=== PATIENT | female | born 1945 | race Hispanic/Latino ===

== ENCOUNTER 2019-03-15 10:50 | Outpatient (CLI) | payer MEDICARE ==
--- NOTE | 2019-03-15 15:08 | Mammography Report ---
BONE DEXA CLINICAL: Postmenopausal. TECHNIQUE: 2 site bone DEXA performed on an Hologic scanner. FINDINGS: The average BMD of the lumbar spine L1-L4 is 0.980g/cm squared with a T score of -0.6 and a Z score o f +1.6. The average total BMD of the left hip is 0.847 g/cm squared with a T score of -0.8and a Z score of +0 .8. The left femoral neck BMD is 0.724g/cm squared with a T score of -1.1 and a Z score of +0.7 IMPRESSION: 1. WHO classification: Normal with average fracture risk based on spine measurements. 2. WHO classification Osteopenia with increased fracture risk based on left femoral neck measurements . RECOMMENDATION: Clinical correlation and routine screening. Definitions: BMD equal bone mineral density T score = BMD related to peak bone mass of young adult ([place] expressed an standard deviation) Z score = age-matched BMD expressed in SD World health organization (WHO) diagnostic criteria Normal T score greater than equal to 1 standard deviation Osteopenia T score between -1 and -2.4 standard deviation Osteoporosis T score -2.5 standard deviation or below. Note: BMD is not the only risk factor for fracture; also consider factors such as the patient's age, risk of falling, previous osteoporotic fracture, family history of osteoporotic fractures, current sm oker and low body weight. Z scores are not calculated if greater than 80 years of age. Signer Name: Romaine Bennett MD Signed: 03/15/2019 3:04 PM Workstation Name: [id number]
== END 2019-03-15 10:51 | disposition home or self-care (01) ==
LOC: SPVWC 10:50
PROVIDERS: ATTEND Internal Medicine
DX: M85.88 Other specified disorders of bone density and structure, other site (principal); M81.0 Age-related osteoporosis without current pathological fracture; Z78.0 Asymptomatic menopausal state
CPT/HCPCS: 77080

== ENCOUNTER 2021-11-13 12:54 | Outpatient (CLI) | payer MEDICARE ==
--- NOTE | 2021-11-13 15:43 | Mammography Report ---
DEXA BONE DENSITY SCAN INDICATION / CLINICAL INFORMATION: ASYMPTOMATIC MENOPAUSAL STATE. 76 years Female COMPARISON: 03/15/2019. LUMBAR SPINE, L1-L4: - Bone mineral density (BMD) = 0.972 g/cm2. - T-score = -0.7 - Change (%) since most recent prior (if available): -0.9 LEFT HIP, NECK : - Bone mineral density (BMD) = 0.678 g/cm2. - T-score = -1.5 - Change (%) since most recent prior (if available): -6.3 IMPRESSION: 1. WHO Classification: Osteopenia. Fracture Risk: Increased. BMD Reporting Guidelines (ISCD, 2015) BMD Reporting in Postmenopausal Women and in Men Age 50 and Older - T-scores are preferred. - The WHO densitometric classification is applicable. BMD Reporting in Females Prior to Menopause and in Males Younger Than Age 50 - Z-scores, not T-scores, are preferred. This is particularly important in children. - A Z-score of -2.0 or lower is defined as below the expected range for age, and a Z-score above -2.0 is within the expected range for age. - Osteoporosis cannot be diagnosed in men under age 50 on the basis of BMD alone. - The WHO diagnostic criteria may be applied to women in the menopausal transition. http://www.iscd.org/official-positions/0250-xbda-fzunbyli-positions-adult/ Signer Name: Erick Douglas MD Signed: 11/13/2021 3:38 PM Workstation Name: [id number]
== END 2021-11-13 12:55 | disposition home or self-care (01) ==
LOC: SPVWC 12:54
PROVIDERS: ATTEND Internal Medicine
DX: M85.88 Other specified disorders of bone density and structure, other site (principal); Z78.0 Asymptomatic menopausal state
CPT/HCPCS: 77080